=== PATIENT | male | born 1955 | race Caucasian/White ===

== ENCOUNTER 2018-09-09 17:39 | Outpatient (REF) | payer OTHER, SELFPAY ==
[2018-09-09 21:32] LABS: Anion Gap 8.3 mmol/L (3-11); BUN 15 mg/dL (7-18); CO2 28.7 mmol/L (21.0-32.0); CREATININE 1.02 mg/dL (0.70-1.30); Calcium 8.9 mg/dL (8.5-10.1); Chloride 102 mmol/L (98-107); Glucose 128 mg/dL (70-100); Potassium 4.2 mmol/L (3.5-5.1); Sodium 139 mmol/L (136-145)
[2018-09-09 21:36] LABS: COMMENT (LAB VIEW ONLY) 202.35 mg/dL; Microalb ug/mg Crea 5.2 ug/mg Cr
[2018-09-09 21:41] LABS: Hemoglobin A1C 6.5 % (4.5-6.2)
== END 2018-09-09 17:59 ==
LOC: NCHCN 17:39
PROVIDERS: PCP Internal Medicine; Visit Provider Internal Medicine
DX: R73.09 Other abnormal glucose (principal); I10 Essential (primary) hypertension
CPT/HCPCS: 80048; 82043; 82570; 83036

== ENCOUNTER 2019-10-30 09:08 | Outpatient (REF) | payer SELFPAY ==
[2019-10-30 20:34] LABS: Hemoglobin A1C 6.6 % (3.8-5.6)
[2019-10-30 20:41] LABS: Anion Gap 10.1 mmol/L (3-11); BUN 20 mg/dL (7-18); CO2 28.9 mmol/L (21.0-32.0); CREATININE 1.15 mg/dL (0.70-1.30); Calcium 8.8 mg/dL (8.5-10.1); Calculated LDL 73 mg/dL (<100); Chloride 102 mmol/L (98-107); Cholesterol 143 mg/dL (<200); Glucose 127 mg/dL (74-106); HDL Cholesterol 33 mg/dL (40-60); Potassium 4.4 mmol/L (3.5-5.1); Sodium 141 mmol/L (136-145); Triglyceride 187 mg/dL (<150)
[2019-10-30 20:44] LABS: COMMENT (LAB VIEW ONLY) 220.34 mg/dL; Microalb ug/mg Crea 7.8 ug/mg Cr
== END 2019-10-30 09:28 ==
LOC: NCHCN 09:08
PROVIDERS: PCP Internal Medicine; Visit Provider Internal Medicine
DX: I10 Essential (primary) hypertension (principal); R73.03 Prediabetes; I77.71 Dissection of carotid artery
CPT/HCPCS: 80048; 80061; 82043; 82570; 83036

== ENCOUNTER 2020-11-26 13:41 | Outpatient (REF) | payer OTHER, SELFPAY ==
[2020-11-26 15:50] LABS: Hemoglobin A1C 6.9 % (<5.7)
[2020-11-26 15:53] LABS: ALT 36 U/L (16-63); AST 20 U/L (15-37); Albumin 4.1 g/dL (3.4-5.0); Alkaline Phosphatase 59 U/L (46-116); Anion Gap 8.4 mmol/L (3-11); BUN 15 mg/dL (7-18); Bilirubin, Total 0.6 mg/dL (0.2-1.0); CO2 29.6 mmol/L (21.0-32.0); CREATININE 1.3 mg/dL (0.70-1.30); Calcium 9.1 mg/dL (8.5-10.1); Calculated LDL 45 mg/dL (<100); Chloride 101 mmol/L (98-107); Cholesterol 117 mg/dL (<200); Estimated GFR 55.23 (mL/min/1.73m2); Glucose 124 mg/dL (74-106); HDL Cholesterol 34 mg/dL (40-60); Potassium 4.5 mmol/L (3.5-5.1); Sodium 139 mmol/L (136-145); Total Protein 7.6 g/dL (6.4-8.2); Triglyceride 192 mg/dL (<150)
[2020-11-27 18:14] LABS: PSA, Screening 1.4 ng/mL (0.0-4.5)
== END 2020-11-26 13:42 | disposition home or self-care (01) ==
LOC: NCHCN 13:41
PROVIDERS: PCP Internal Medicine; Visit Provider Internal Medicine
DX: E11.9 Type 2 diabetes mellitus without complications (principal); I10 Essential (primary) hypertension; Z12.5 Encounter for screening for malignant neoplasm of prostate
CPT/HCPCS: 80053; 80061; 84153; 83036

== ENCOUNTER 2020-12-03 22:16 | Outpatient (REF) | payer OTHER, SELFPAY ==
[2020-12-03 22:21] LABS: COMMENT (LAB VIEW ONLY) 152.48 mg/dL; Microalb ug/mg Crea 4.9 ug/mg Cr
== END 2020-12-03 22:17 | disposition home or self-care (01) ==
LOC: NCHCN 22:16
PROVIDERS: PCP Internal Medicine; Visit Provider Nurse Practitioner Family
DX: E11.9 Type 2 diabetes mellitus without complications (principal)
CPT/HCPCS: 82043; 82570

== ENCOUNTER 2021-10-17 16:00 | Outpatient (REF) | payer OTHER, SELFPAY ==
[2021-10-17 16:38] LABS: COMMENT (LAB VIEW ONLY) 223.37 mg/dL; PROTEIN 16.8 mg/dL; Prot/Crea Ur Ratio 0.07
[2021-10-17 16:40] LABS: COMMENT (LAB VIEW ONLY) 226.43 mg/dL; Microalb ug/mg Crea 12.9 ug/mg Cr
[2021-10-17 16:41] LABS: Hemoglobin A1C 6.7 % (<5.7)
[2021-10-17 16:48] LABS: Anion Gap 7.4 mmol/L (3-11); BUN 20 mg/dL (7-18); CO2 28.6 mmol/L (21.0-32.0); CREATININE 1.3 mg/dL (0.70-1.30); Calcium 8.9 mg/dL (8.5-10.1); Chloride 102 mmol/L (98-107); Estimated GFR 55.06 (mL/min/1.73m2); Glucose 128 mg/dL (74-106); Potassium 4.6 mmol/L (3.5-5.1); Sodium 138 mmol/L (136-145)
== END 2021-10-17 16:01 | disposition home or self-care (01) ==
LOC: NCHCN 16:00
PROVIDERS: PCP Internal Medicine; Visit Provider Nurse Practitioner Family
DX: I10 Essential (primary) hypertension (principal); E11.9 Type 2 diabetes mellitus without complications
CPT/HCPCS: 80048; 82043; 82565; 82570; 83036; 84156

== ENCOUNTER 2022-11-16 22:19 | Outpatient (REF) | payer MEDICARE, SELFPAY ==
[2022-11-16 21:43] LABS: COMMENT (LAB VIEW ONLY) 263.34 mg/dL; Microalb ug/mg Crea 10.8 ug/mg Cr
== END 2022-11-16 22:20 | disposition home or self-care (01) ==
LOC: NCHCN 22:19
PROVIDERS: PCP Internal Medicine; Visit Provider Internal Medicine
DX: E11.9 Type 2 diabetes mellitus without complications (principal)
CPT/HCPCS: 82043; 82570

== ENCOUNTER 2023-03-10 09:26 | Outpatient (REF) | payer MEDICARE, SELFPAY ==
[2023-03-10 14:45] LABS: HCT 46.6 % (40.0-50.0); HGB 15.2 g/dL (13.5-17.5); MCH 30.4 pg (27.0-33.0); MCHC 32.6 % (32.0-36.0); MCV 93 fL (80-95); MPV 9.5 fL (8.0-11.0); Platelet Count 242 10^3/uL (130-400); RDW 12.9 % (11.8-14.1); WBC 6.42 10^3/uL (4.4-10.8)
[2023-03-10 14:53] LABS: Anion Gap 6.2 mmol/L (3-11); BUN 15 mg/dL (7-18); CO2 29.8 mmol/L (21.0-32.0); CREATININE 1.5 mg/dL (0.70-1.30); Calcium 8.7 mg/dL (8.5-10.1); Chloride 102 mmol/L (98-107); Glucose 136 mg/dL (74-106); Potassium 4.7 mmol/L (3.5-5.1); Sodium 138 mmol/L (136-145)
[2023-03-10 15:35] LABS: Hemoglobin A1C 6.7 % (<5.7)
== END 2023-03-10 09:27 | disposition home or self-care (01) ==
LOC: NCHCN 09:26
PROVIDERS: PCP Internal Medicine; Visit Provider Internal Medicine
DX: E11.9 Type 2 diabetes mellitus without complications (principal); I10 Essential (primary) hypertension; I77.71 Dissection of carotid artery
CPT/HCPCS: 80048; 85027; 83036

== ENCOUNTER 2023-06-28 13:18 | Outpatient (REF) | payer MEDICARE, SELFPAY ==
[2023-06-28 15:11] LABS: Anion Gap 9.2 mmol/L (3-11); BUN 15 mg/dL (7-18); CO2 26.8 mmol/L (21.0-32.0); CREATININE 1.3 mg/dL (0.70-1.30); Calcium 9.5 mg/dL (8.5-10.1); Chloride 101 mmol/L (98-107); Estimated GFR 59.47 (mL/min/1.73m2); Glucose 138 mg/dL (74-106); Potassium 4.5 mmol/L (3.5-5.1); Sodium 137 mmol/L (136-145)
[2023-06-28 15:22] LABS: Hemoglobin A1C 7.1 % (<5.7)
== END 2023-06-28 13:19 | disposition home or self-care (01) ==
LOC: NCHCN 13:18
PROVIDERS: PCP Internal Medicine; Visit Provider Internal Medicine
DX: E11.9 Type 2 diabetes mellitus without complications (principal); N18.9 Chronic kidney disease, unspecified; I10 Essential (primary) hypertension
CPT/HCPCS: 80048; 83036

== ENCOUNTER 2023-09-27 16:15 | Outpatient (REF) | payer MEDICARE, SELFPAY ==
[2023-09-27 17:27] LABS: COMMENT (LAB VIEW ONLY) 111.37 mg/dL
== END 2023-09-27 16:16 | disposition home or self-care (01) ==
LOC: NCHCN 16:15
PROVIDERS: PCP Internal Medicine; Visit Provider Internal Medicine
DX: E11.9 Type 2 diabetes mellitus without complications (principal)
CPT/HCPCS: 82043; 82570

== ENCOUNTER 2024-07-31 13:47 | Outpatient (REF) | payer MEDICARE, SELFPAY ==
[2024-07-31 15:19] LABS: HCT 50.6 % (40.0-50.0); HGB 16.4 g/dL (13.5-17.5); MCH 30.9 pg (27.0-33.0); MCHC 32.4 % (32.0-36.0); MCV 96 fL (80-95); MPV 9.4 fL (8.0-11.0); Platelet Count 243 10^3/uL (130-400); RDW 12.8 % (11.8-14.1); RDW-SD 45.2 fL; WBC 7.42 10^3/uL (4.4-10.8)
[2024-07-31 16:16] LABS: ALT 36 U/L (16-63); AST 31 U/L (15-37); Albumin 4.4 g/dL (3.4-5.0); Alkaline Phosphatase 56 U/L (46-116); Anion Gap 6.8 mmol/L (3-11); BUN 19 mg/dL (7-18); Bilirubin, Total 0.84 mg/dL (0.2-1.0); CO2 29.2 mmol/L (21.0-32.0); CREATININE 1.2 mg/dL (0.70-1.30); Calcium 9.5 mg/dL (8.5-10.1); Calculated LDL 45 mg/dL (<100); Chloride 104 mmol/L (98-107); Cholesterol 132 mg/dL (<200); Estimated GFR 65.06 (mL/min/1.73m2); Glucose 105 mg/dL (74-106); HDL Cholesterol 46 mg/dL (40-60); Potassium 5.2 mmol/L (3.5-5.1); Sodium 140 mmol/L (136-145); Total Protein 8.1 g/dL (6.4-8.2); Triglyceride 206 mg/dL (<150)
[2024-07-31 17:59] LABS: Hemoglobin A1C 6.3 % (<5.7)
== END 2024-07-31 13:48 | disposition home or self-care (01) ==
LOC: NCHCN 13:47
PROVIDERS: PCP Internal Medicine; Visit Provider Internal Medicine
DX: E11.9 Type 2 diabetes mellitus without complications (principal)
CPT/HCPCS: 80053; 80061; 85027; 83036

== ENCOUNTER 2024-08-07 12:55 | Outpatient (REF) | payer MEDICARE, SELFPAY ==
[2024-08-07 16:13] LABS: COMMENT (LAB VIEW ONLY) 120.81 mg/dL; Microalb ug/mg Crea 11.7 ug/mg Cr
== END 2024-08-07 12:56 | disposition home or self-care (01) ==
LOC: NCHCN 12:55
PROVIDERS: PCP Internal Medicine; Visit Provider Internal Medicine
DX: E11.9 Type 2 diabetes mellitus without complications (principal)
CPT/HCPCS: 82043; 82570

== ENCOUNTER 2024-12-27 10:29 | Outpatient (REF) | payer MEDICARE, SELFPAY ==
[2024-12-27 14:37] LABS: HCT 48.9 % (40.0-50.0); HGB 16.4 g/dL (13.5-17.5); MCH 31.2 pg (27.0-33.0); MCHC 33.5 % (32.0-36.0); MCV 93 fL (80-95); MPV 9.3 fL (8.0-11.0); Platelet Count 243 10^3/uL (130-400); RBC 5.26 10^6/uL (4.36-5.78); RDW 12.7 % (11.8-14.1); RDW-SD 43.8 fL
[2024-12-27 16:24] LABS: ALT 33 U/L (16-63); AST 27 U/L (15-37); Albumin 4.4 g/dL (3.4-5.0); Alkaline Phosphatase 66 U/L (46-116); Anion Gap 10.7 mmol/L (3-11); BUN 16 mg/dL (7-18); Bilirubin, Total 0.8 mg/dL (0.2-1.0); CO2 28.3 mmol/L (21.0-32.0); CREATININE 1.1 mg/dL (0.70-1.30); Calcium 9.7 mg/dL (8.5-10.1); Chloride 105 mmol/L (98-107); Estimated GFR 72.22 (mL/min/1.73m2); Glucose 131 mg/dL (74-106); Potassium 4.9 mmol/L (3.5-5.1); Sodium 144 mmol/L (136-145); Total Protein 8.1 g/dL (6.4-8.2)
== END 2024-12-27 10:30 | disposition home or self-care (01) ==
LOC: NCHCN 10:29
PROVIDERS: PCP Internal Medicine; Visit Provider Internal Medicine
DX: R53.83 Other fatigue (principal)
CPT/HCPCS: 80053; 85027

== ENCOUNTER 2025-01-26 20:59 | Outpatient (REF) | payer MEDICARE, SELFPAY | END 2025-01-26 21:00 | disposition home or self-care (01) | LOC: NCHCN 20:59 | PROVIDERS: PCP Internal Medicine; Visit Provider Internal Medicine | DX: E11.9 Type 2 diabetes mellitus without complications (principal) ==

== ENCOUNTER 2025-08-20 11:28 | Outpatient (REF) | payer MEDICARE, SELFPAY ==
--- NOTE | 2025-08-20 10:00 | SKI_PTH ---
PATIENT: Luis Quigley LOC: [facility] U#:[id number] AGE/SX: 70/M ROOM: RE08/20/[address]: Kavita Kelley : 1955 BED: DIS: 08/20/2025 SPEC #: [id number] RECD: 08/20/25 18:05 STATUS: MERCEDES LUIS #: [id number] ROBERT: 08/20/25 10:[address]: Kavita Kelley DEPT: Surgical Specimen RECD BY: Patricia Segovia Tissues: 1 - SKIN BIOPSY(SHAVE/PUNCH) Procedures: SKIN LEVEL 4 Comments: [id number]
[2025-08-20 15:35] LABS: Microalb ug/mg Crea 5.3 ug/mg Cr
== END 2025-08-20 11:29 | disposition home or self-care (01) ==
LOC: NCHCN 11:28
PROVIDERS: PCP Internal Medicine; Visit Provider Internal Medicine
DX: E11.9 Type 2 diabetes mellitus without complications (principal); M15.1 Heberden's nodes (with arthropathy)
CPT/HCPCS: 82043; 82570; 88305